=== PATIENT | male | born 1980 | race Caucasian/White ===

== ENCOUNTER 2017-06-23 20:03 | Emergency (ER) | payer OTHER, BC ==
[2017-06-23] MEDS ORDERED: Diphtheria,Pertussis(Acell),Tetanus Vaccine 0.5 ML SDV IM ONE (20:10)
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
[2017-06-23] MEDS ORDERED: Lidocaine 1% 10 ML MDV INJECT ONE (21:04)
--- NOTE | 2017-06-26 11:41 | CR ---
Chest: Portable view of the chest was obtained. Comparison: No prior chest x-ray is available. Heart size and mediastinum are within normal limits. Lungs are clear. Bony structures are grossly intact. Impression: 1. Nothing acute is identified on portable chest x-ray. Diagnostic code #1
== END 2017-06-23 22:18 | disposition home or self-care (01) ==
LOC: JD.ED 20:03
DX: S01.01XA Laceration without foreign body of scalp, initial encounter (principal); S40.212A Abrasion of left shoulder, initial encounter; S40.211A Abrasion of right shoulder, initial encounter; Z88.1 Allergy status to other antibiotic agents; Z79.899 Other long term (current) drug therapy; V89.2XXA Person injured in unspecified motor-vehicle accident, traffic, initial encounter
CPT/HCPCS: 12001; 36415; 71010; 80053; 80306; 81001; 83690; 85025; 90471; 90715; 93005; 99285; G0480; 93010; 99284-25